=== PATIENT | female | born 1985 | race Caucasian/White ===

== ENCOUNTER 2024-06-15 17:30 | Emergency (ER) | payer OTHER, SELFPAY ==
[2024-06-15 17:34] VITALS: BP 180/106
--- NOTE | 2024-06-15 19:50 | ED.MUSCINJ ---
HPI-Injury
General
Chief Complaint: Musculo-Skeletal Complaint
Source: patient
Exam Limitations: none
Time Seen by Provider: 06/15/24 19:33
History of Present Illness-Injury
Initial Injury comments:
39-year-old female presents complaining of left ankle pain. She stepped off a step and landed on uneven ground. She suffered what sounds like an inversion type injury. She felt a pop on the lateral aspect of the ankle. She has not attempted to
bear weight on this since then. No other complaints
Phy Exam
Physical Exam
Physical Exam:
General: Well-appearing female no acute respiratory distress
Musculoskeletal exam: Left ankle with mild soft tissue swelling inferior to the lateral malleolus. The medial malleolus is nontender. She is slightly tender inferior to the lateral malleolus ankle stable to drawer test. She is able to resist
eversion and inversion. She is able to actively dorsiflex and plantarflex
Vascular: 2+ dorsalis pedis pulse left foot
Neurologic: Good sensation left foot
Injury Course
Orders/Labs/Results
Orders:
Orders
06/15/24 17:37
Ankle, left 3 view CR [CR Ankle - Left Min 3 Views ] Urgent
Comment:
Reason For Exam: pain injury
MDM/Problems Addressed
Differential Diagnosis Includes:
Left ankle pain after inversion injury. Suspect ankle sprain versus fracture versus dislocation
X-rays of the left ankle were ordered and reviewed personally and are negative for acute finding. Suspect underlying sprain. Will place an orthopedic boot will be discharged with orthopedic follow-up
*Critical Care Note
Total Time (30-74mins, 75-104mins- exclusive of procedures): Not Applicable
ED Attending Note
-
Portions of this chart may have been created with voice recognition software.� Occasional wrong word or��sound alike� substitutions may have occurred due to the inherent limitations of voice recognition software.
Discharge Plan
Departure
Patient Disposition: Home (Routine Discharge)
Date of Disposition: 06/15/24
Time of Disposition: 19:51
Patient with high blood pressure during this ER visit?: No
Discharge Problem:
Ankle sprain
Prescriptions:
No Action
PNV with Ca,no.71-iron-FA 1 TAB tablet
1 tab PO DAILY
alprazolam 0.5 MG tablet
0.5 mg PO TIDPRN PRN (Reason: ANXIETY) Qty: 0 0RF
ibuprofen 600 MG tablet
600 mg PO Q4HPRN PRN (Reason: moderate pain/cramps) Qty: 0 0RF
sertraline 50 MG tablet
50 mg PO DAILY Qty: 0 0RF
Referrals:
Aaliyah Brito DO [Family Provider] -
Fortunato Tran MD [Active] -
Activity Restrictions/Additional Instructions:
Rest. Elevate. Use ice for swelling. You may use ibuprofen or Tylenol for pain. Use boot for support for ambulation. Return if needed otherwise follow-up with orthopedics
Discharge Date and Time
Print Language: CHINESE
[2024-06-15 20:04] VITALS: BP 163/97
== END 2024-06-15 20:06 | disposition home or self-care (01) ==
LOC: EMR 17:30
PROVIDERS: EMERGENCY PHYSICIAN Emergency Medicine; FAMILY PHYSICIAN Family Medicine
DX: S93.402A Sprain of unspecified ligament of left ankle, initial encounter (principal); X50.1XXA Overexertion from prolonged static or awkward postures, initial encounter
CPT/HCPCS: 99283; 73610